=== PATIENT | female | born 1990 | race Caucasian/White ===

== ENCOUNTER → 2020-02-16 | Day surgery (SDC) | payer OTHER ==
[~2020-02-16] MED LIST: ACETAMINOPHEN500 M1 PO; COLACE100 MG PO; MOTRIN600 MG PO; OXY-IR 5MG5 MG PO; PROBIOTIC1 EAC1 PO
[2020-02-16 08:28] LABS: HCG (URINE) SCREEN NEGATIVE (NEGATIVE)
== END | disposition home or self-care (01) ==
LOC: FAS 08:02
PROVIDERS: Anesthesiology
DX: K81.1 Chronic cholecystitis (principal); K82.8 Other specified diseases of gallbladder; F41.9 Anxiety disorder, unspecified; K59.09 Other constipation; Z88.0 Allergy status to penicillin; Z88.1 Allergy status to other antibiotic agents
CPT/HCPCS: 84703; J1100; J1170; J1644; J1885; J2250; J2405; J2704; J2710; J3010; J7120; Q9967

== ENCOUNTER 2020-03-20 23:58 | Emergency (ER) | payer OTHER ==
[2020-03-21 00:53] LABS: BASOPHIL 0.5 % (0-2); EOSINOPHIL 1.8 % (0-5); HCT 37.5 % (37.0-47.0); HGB 12.6 g/dl (12.5-16.0); LYMPHOCYTE 28.7 % (15-48); MCHC 33.6 g/dL (32.0-36.0); MCV 92.4 fL (78.0-100.0); MONOCYTE 7.3 % (0-12); MPV 10.1 fL (6.0-9.5); NEUTROPHIL 61.6 % (41-80); NRBC 0; PLT 243 K/uL (150-400); RBC 4.06 M/uL (4.20-5.40); RDW 12.2 % (11.5-14.0); WBC 7.8 K/uL (4.0-10.5)
[2020-03-21 01:16] LABS: ALBUMIN 3.9 g/dL (3.4-5.0); BILIRUBIN - TOTAL 0.2 mg/dL (0.2-1.0); BUN/CREAT RATIO (CALC) 21.7 RATIO; CREATININE 0.6 mg/dL (0.51-0.95); GLOBULIN (CALCULATION) 4.4 g/dL; POTASSIUM 3.4 mmol/L (3.5-5.1); TOTAL PROTEIN 8.3 g/dL (6.4-8.2)
== END 2020-03-21 03:10 | disposition home or self-care (01) ==
LOC: FER 23:58
PROVIDERS: Emergency Medicine
DX: R07.1 Chest pain on breathing (principal); M79.661 Pain in right lower leg; Z88.1 Allergy status to other antibiotic agents; Z88.0 Allergy status to penicillin
CPT/HCPCS: 36415; 71045; 71275; 80053; 83690; 84484; 85025; 93005; Q9967

== ENCOUNTER → 2021-11-09 | Day surgery (SDC) | payer OTHER ==
[~2021-11-09] MED LIST changes: +PERCOCET 5-3251 EACH PO
[2021-11-09 09:10] LABS: BASOPHIL 0.3 % (0-2); EOSINOPHIL 0 % (0-5); HCT 38.4 % (37.0-47.0); HGB 13.3 g/dl (12.5-16.0); LYMPHOCYTE 9.9 % (15-48); MCH 31.5 pg (25.0-31.0); MCHC 34.6 g/dL (32.0-36.0); MONOCYTE 3.1 % (0-12); MPV 10.9 fL (6.0-9.5); NEUTROPHIL 86.4 % (41-80); NRBC 0; PLT 223 K/uL (150-400); RBC 4.22 M/uL (4.20-5.40); RDW 12.4 % (11.5-14.0)
[2021-11-09 09:11] LABS: BILIRUBIN NEGATIVE (NEGATIVE); BLOOD NEGATIVE Ery/uL (NEGATIVE); CLARITY CLEAR (CLEAR); COLOR YELLOW (YELLOW); GLUCOSE (U) NORMAL (NORMAL); LEUKOCYTES NEGATIVE Leu/uL (NEGATIVE); NITRITE NEGATIVE (NEGATIVE); PROTEIN NEGATIVE (NEGATIVE); SPECIFIC GRAVITY 1.025 (1.001-1.030); UROBILINOGEN 0.2 mg/dL (0.2-1.0)
[2021-11-09 09:40] LABS: ALBUMIN 4.5 g/dL (3.4-5.0); BILIRUBIN - TOTAL 0.7 mg/dL (0.2-1.0); BUN/CREAT RATIO (CALC) 16.7 RATIO; CREATININE 0.6 mg/dL (0.51-0.95); GLOBULIN (CALCULATION) 3.4 g/dL; POTASSIUM 3.6 mmol/L (3.5-5.1); TOTAL PROTEIN 7.9 g/dL (6.4-8.2)
== END | disposition home or self-care (01) ==
LOC: FER 07:49 → FAS 11:54
PROVIDERS: Emergency Medicine
DX: N80.9 Endometriosis, unspecified (principal); N83.202 Unspecified ovarian cyst, left side; Z20.822 Contact with and (suspected) exposure to COVID-19
CPT/HCPCS: 36415; 76830; 80053; 81003; 85025; C1765; J1170; J1885; J2250; J2270; J2405; J2704; J3010; U0002